=== PATIENT | female | born 1970 | race Caucasian/White ===

== ENCOUNTER 2018-03-28 17:42 | Outpatient (CLI) | payer BC | END 2018-03-28 17:43 | disposition home or self-care (01) | LOC: BICMAMMO 17:42 | PROVIDERS: ATTEND Student in an Organized Health Care Education/Training Program | DX: Z12.31 Encounter for screening mammogram for malignant neoplasm of breast (principal) | CPT/HCPCS: 77063; 77067 ==

== ENCOUNTER 2019-07-19 11:43 | Outpatient (CLI) | payer BC ==
--- NOTE | 2019-07-19 12:46 | MMO ---
Bilateral MAMMO Bilat Screen [facility]. CLINICAL HISTORY: Patient is 48 years old and is seen for screening. The patient has no family history of breast cancer. The patient has no personal history of cancer. VIEWS: The views performed were: bilateral craniocaudal with tomosynthesis and bilateral mediolateral oblique with tomosynthesis. FILMS COMPARED: The present examination has been compared to prior imaging studies performed at [facility] on 06/21/2012, 02/15/2014, 07/24/2015 and 03/28/2018. This study has been interpreted with the assistance of computer-aided detection. MAMMOGRAM FINDINGS: The breasts are heterogeneously dense, which could obscure a lesion on mammography. There are stable benign appearing calcifications seen in both breasts. There are no suspicious masses, suspicious calcifications, or new areas of architectural distortion. IMPRESSION: THERE IS NO MAMMOGRAPHIC EVIDENCE OF MALIGNANCY. A ROUTINE FOLLOW-UP MAMMOGRAM IN 1 YEAR IS RECOMMENDED. THE RESULTS OF THIS EXAM WERE SENT TO THE PATIENT. ACR BI-RADS Category 2 - Benign finding MAMMOGRAPHY NOTE: 1. A negative mammogram report should not delay a biopsy if a dominant of clinically suspicious mass is present. 2. Approximately 10% to 15% of breast cancers are not detected by mammography. 3. Adenosis and dense breasts may obscure an underlying neoplasm. Reported by: MIGUEL GUILLEN MD Electonically Signed: [id number]
== END 2019-07-19 11:44 | disposition home or self-care (01) ==
LOC: BICMAMMO 11:43
PROVIDERS: ATTEND Student in an Organized Health Care Education/Training Program
DX: Z12.31 Encounter for screening mammogram for malignant neoplasm of breast (principal)
CPT/HCPCS: 77063; 77067

== ENCOUNTER 2020-11-27 13:06 | Outpatient (CLI) | payer BC | END 2020-11-27 13:07 | disposition home or self-care (01) | LOC: BICMAMMO 13:06 | PROVIDERS: ATTEND Student in an Organized Health Care Education/Training Program | DX: Z12.31 Encounter for screening mammogram for malignant neoplasm of breast (principal) | CPT/HCPCS: 77063; 77067 ==

== ENCOUNTER 2022-03-19 13:38 | Outpatient (CLI) | payer BC | END 2022-03-19 13:39 | disposition home or self-care (01) | LOC: BICMAMMO 13:38 | PROVIDERS: ATTEND Student in an Organized Health Care Education/Training Program | DX: Z12.31 Encounter for screening mammogram for malignant neoplasm of breast (principal) | CPT/HCPCS: 77063; 77067 ==

== ENCOUNTER 2022-09-03 06:19 | Day surgery (SDC) | payer BC ==
[2022-09-02 10:25] VITALS: BMI 29.9
[~2022-09-03 06:19] MED LIST: Enoxaparin 25 MG, EPINEPHrine 0.3 MG in Ophthalmic Irrigation Solution 500 ML FS SCH; Indocyanine Green 25 MG/10 ML VIAL ONE
[2022-09-03] MEDS ORDERED: fentaNYL 50 mcg/mL 1 mL Vial ONE ×3 (06:29→09:06)
[2022-09-03] MEDS ORDERED: PROPOFOL 20 ML ONE (06:29)
[2022-09-03] MEDS ORDERED: Midazolam HCl 2 mg/2 ml Vial ONE ×2 (06:29→09:06)
[2022-09-03] MEDS ORDERED: Cyclopentolate 1% Opth Drop 2 ML BOT ONE (06:34)
[2022-09-03] MEDS ORDERED: PHENYLephrine 2.5% Ophth Soln 15 ml Bottle ONE (06:34)
[2022-09-03] MEDS ORDERED: Ciprofloxacin 0.2% Otic (0.25ML CONTAINER) ONE (06:49)
[2022-09-03] MEDS ORDERED: TISSUEBLUE 0.5 ML SYRINGE IO ONE (07:16)
[2022-09-03] MEDS ORDERED: Triamcinolone 40 MG/ML VIAL ONE (07:16)
[2022-09-03] MEDS ORDERED: Bupivacaine 0.75% 10 ML VIAL ONE (07:16)
[2022-09-03] MEDS ORDERED: Lidocaine 4% PF 5 ML AMP ONE (07:16)
[2022-09-03] MEDS ORDERED: Indocyanine Green 25 MG/10 ML VIAL ONE (07:16)
[2022-09-03] MEDS ORDERED: Lidocaine 1% PF 5 ML VIAL ONE (07:16)
[2022-09-03] MEDS ORDERED: Maxitrol 0.1% Opth Oint 3.5 GM TUBE ONE (07:16)
[2022-09-03] MEDS ORDERED: CEFAZOLIN 1 GM VIAL ONE (07:16)
== END 2022-09-03 09:50 | disposition home or self-care (01) ==
LOC: SDC 06:19
PROVIDERS: ATTEND Ophthalmology Retina Specialist
PROC: 08NF3ZZ Release Left Retina, Percutaneous Approach (ICD-10-PCS; principal; 2022-09-03)
PROC: 08T53ZZ Resection of Left Vitreous, Percutaneous Approach (ICD-10-PCS; principal; 2022-09-03)
DX: H33.002 Unspecified retinal detachment with retinal break, left eye (principal)
CPT/HCPCS: 67025; J0171; J0690; J1650; J2250; J2704; J3010; J3301; J3490

== ENCOUNTER 2022-09-24 06:35 | Day surgery (SDC) | payer BC ==
[2022-09-23 14:19] VITALS: BMI 30.2
[~2022-09-24 06:35] MED LIST changes: +Fluorouracil 100 MG, Enoxaparin 25 MG, EPINEPHrine 0.3 MG in Ophthalmic Irrigation Solu... IRR SCH; -Indocyanine Green 25 MG/10 ML VIAL ONE
[2022-09-24] MEDS ORDERED: Cyclopentolate 0.5% Opth Drops 15 ML BOT ONE (07:02)
[2022-09-24] MEDS ORDERED: PHENYLephrine 2.5% Ophth Soln 15 ml Bottle ONE (07:02)
[2022-09-24] MEDS ORDERED: fentaNYL 50 mcg/mL 1 mL Vial ONE ×2 (08:13→08:14)
[2022-09-24] MEDS ORDERED: Midazolam HCl 2 mg/2 ml Vial ONE (08:13)
[2022-09-24] MEDS ORDERED: Triamcinolone 40 MG/ML VIAL ONE (08:28)
[2022-09-24] MEDS ORDERED: Maxitrol 0.1% Opth Oint 3.5 GM TUBE ONE (08:28)
[2022-09-24] MEDS ORDERED: Lidocaine 4% PF 5 ML AMP ONE (08:28)
[2022-09-24] MEDS ORDERED: Lidocaine 1% PF 5 ML VIAL ONE (08:28)
[2022-09-24] MEDS ORDERED: CEFAZOLIN 1 GM VIAL ONE (08:28)
[2022-09-24] MEDS ORDERED: Bupivacaine 0.75% 10 ML VIAL ONE (08:28)
[2022-09-24] MEDS ORDERED: Propofol 500 MG/50 ML VIAL ONE (09:16)
[2022-09-24] MEDS ORDERED: Acetaminophen 500 MG TAB ONE (10:33)
== END 2022-09-24 10:48 | disposition home or self-care (01) ==
LOC: SDC 06:35
PROVIDERS: ATTEND Ophthalmology Retina Specialist
PROC: 08T53ZZ Resection of Left Vitreous, Percutaneous Approach (ICD-10-PCS; principal; 2022-09-24)
DX: H33.22 Serous retinal detachment, left eye (principal)
CPT/HCPCS: C1814; J0171; J0690; J1650; J2250; J2704; J3010; J3301; J3490